=== PATIENT | female | born 1995 | race Hispanic/Latino ===

== ENCOUNTER 2019-11-28 23:32 | Observation (INO) | payer MEDICAID ==
[~2019-11-28] VITALS: Ht 157.5 cm; Wt 103.4 kg
[2019-11-29 00:32] LABS: APPEARANCE,URINE Clear (CLEAR); BILIRUBIN,URINE Negative (NEGATIVE); COLOR,URINE Yellow (YELLOW); GLUCOSE, URINE (UA) Negative (NEGATIVE); KETONES,URINE Negative (NEGATIVE); LEUKOCYTE ESTERASE ,URINE Small (NEGATIVE); NITRATE,URINE Negative (NEGATIVE); OCCULT BLOOD,URINE Negative (NEGATIVE); PH,URINE 7.5 (5.0-8.0); PROTEIN,URINE Negative (NEGATIVE)
[2019-11-29 01:04] LABS: BACTERIA,URINE Few /HPF (None Seen); RBC,URINE 0-1 /HPF (0-1)
[2019-11-29] MEDS ORDERED: LACTATED RINGERS 1000ML 1,000 ML IV PRN (01:20)
[2019-11-29 01:21] LABS: AMPHET/METH SCREEN,URINE NEGATIVE (NEGATIVE); BARBITURATE SCREEN, URINE NEGATIVE (NEGATIVE); BENZODIAZEPINES SCREEN,URINE NEGATIVE (NEGATIVE); CANNABINOID SCREEN,URINE NEGATIVE (NEGATIVE); COCAINE SCREEN,URINE NEGATIVE (NEGATIVE); OPIATE SCREEN,URINE NEGATIVE (NEGATIVE); PHENCYCLIDINE SCREEN,URINE NEGATIVE (NEGATIVE)
[2019-11-29] MEDS ORDERED: LACTATED RINGERS 1000ML 1,000 ML IV ONE (01:25)
[2019-11-29] MEDS ORDERED: LACTATED RINGERS 1000ML 1,000 ML IV SCH (01:30)
[2019-11-29 01:54] LABS: HEMATOCRIT 36.5 % (36-48); MEAN CORPUSCULAR HEMOGLOBIN 28.8 pg (27.0-33.0); MEAN CORPUSCULAR HGB CONC 33.4 g/dL (32.0-36.0); MEAN CORPUSCULAR VOLUME 86.3 fL (79-99); RED BLOOD CELL COUNT(AUTO) 4.23 MIL/uL (4.00-5.50); RED CELL DISTRIBUTION WIDTH 13.3 % (11.0-15.5); WHITE BLOOD COUNT (AUTO) 10.3 K/uL (4.8-10.8)
[2019-11-29] MEDS ORDERED: ACETAMINOPHEN 325 MG TAB ONE (03:15)
[2019-11-29 07:24] LABS: RAPID PLASMA REAGIN NONREACTIVE (NONREACTIVE)
[2019-12-02 05:13] LABS: HEPATITIS Bs ANTIGEN SCREEN P Negative (Negative)
== END 2019-11-29 09:30 | disposition home or self-care (01) ==
LOC: EDH 23:32 → LDH 23:33
DX: O60.03 Preterm labor without delivery, third trimester (principal); Z3A.38 38 weeks gestation of pregnancy
CPT/HCPCS: 36415; 80305; 81001; 85027; 86592; 86701; 86850; 86900; 86901; 87088; 87340; 87390; 96360; 96361; 99284; G0378 ×2; J7120 ×2

== ENCOUNTER 2019-12-18 17:52 | Observation (INO) | payer MEDICAID ==
[~2019-12-18] VITALS: Ht 160 cm; Wt 103.0 kg
[2019-12-18] MEDS ORDERED: NALOXONE HCL 0.4 MG/1 ML ML IV PRN (19:30)
[2019-12-18] MEDS ORDERED: LACTATED RINGERS 500 ML 500 ML IV PRN (19:30)
[2019-12-18] MEDS ORDERED: EPHEDRINE SULFATE 50 MG/ML AMPULE IVP PRN (19:30)
[2019-12-18] MEDS ORDERED: LACTATED RINGERS 1000ML 1,000 ML IV PRN (19:30)
[2019-12-18] MEDS ORDERED: MEPERIDINE-PF 50 MG/ML SYG IVP PRN (19:30)
[2019-12-18] MEDS ORDERED: PROMETHAZINE HCL 25 MG/ML 1ML AMPULE IM PRN (19:30)
[2019-12-18] MEDS ORDERED: DINOPROSTONE 10 MG VAGINAL SUPP VG SCH (19:30)
[2019-12-18] MEDS ORDERED: ROPIVACAINE 0.2% 100ML VIAL 100 ML EP SCH (19:30)
[2019-12-18 19:55] LABS: BILIRUBIN,URINE Negative (NEGATIVE); COLOR,URINE Yellow (YELLOW); GLUCOSE, URINE (UA) Negative (NEGATIVE); KETONES,URINE >=80 mg/dL (NEGATIVE); LEUKOCYTE ESTERASE ,URINE Small (NEGATIVE); NITRATE,URINE Negative (NEGATIVE); OCCULT BLOOD,URINE Negative (NEGATIVE); PH,URINE 5.5 (5.0-8.0); PROTEIN,URINE Negative (NEGATIVE)
[2019-12-18 19:59] VITALS: BP 117/66
[2019-12-18] MEDS ORDERED: OXYTOCIN-LR 20 UNITS/1000 ML 1,000 ML IV SCH (20:00)
[2019-12-18 20:13] LABS: APPEARANCE,URINE HAZY (CLEAR)
[2019-12-18 20:19] LABS: BACTERIA,URINE Few /HPF (None Seen); RBC,URINE None Seen /HPF (0-1)
[2019-12-18 20:39] LABS: HEMATOCRIT 38.2 % (36-48); MEAN CORPUSCULAR HEMOGLOBIN 27.4 pg (27.0-33.0); MEAN CORPUSCULAR HGB CONC 32.5 g/dL (32.0-36.0); MEAN CORPUSCULAR VOLUME 84.3 fL (79-99); RED BLOOD CELL COUNT(AUTO) 4.53 MIL/uL (4.00-5.50); RED CELL DISTRIBUTION WIDTH 14.2 % (11.0-15.5); WHITE BLOOD COUNT (AUTO) 11.1 K/uL (4.8-10.8)
[2019-12-18 22:17] LABS: AMPHET/METH SCREEN,URINE NEGATIVE (NEGATIVE); BARBITURATE SCREEN, URINE NEGATIVE (NEGATIVE); BENZODIAZEPINES SCREEN,URINE NEGATIVE (NEGATIVE); CANNABINOID SCREEN,URINE NEGATIVE (NEGATIVE); COCAINE SCREEN,URINE NEGATIVE (NEGATIVE); OPIATE SCREEN,URINE NEGATIVE (NEGATIVE); PHENCYCLIDINE SCREEN,URINE NEGATIVE (NEGATIVE)
[2019-12-19] MEDS ORDERED: OXYTOCIN-LR 20 UNITS/1000 ML 1,000 ML IV SCH (04:00)
== END 2019-12-18 23:45 | disposition home or self-care (01) ==
LOC: LDH 17:52 → INTOOBSV 17:52 → PREOBSVTOIN 12-20 17:49
DX: O21.2 Late vomiting of pregnancy (principal); R53.1 Weakness; R10.2 Pelvic and perineal pain; Z3A.39 39 weeks gestation of pregnancy
CPT/HCPCS: 36415; 80305; 81001; 85027; 86592; 86850; 86900; 86901; 87088; G0378 ×4

== ENCOUNTER 2019-12-24 05:54 | Inpatient (IN) | payer MEDICAID ==
[~2019-12-24] VITALS: Ht 157.5 cm; Wt 103.0 kg
[2019-12-24] MEDS ORDERED: CEFAZOLIN SODIUM 1 GM VIAL IVP PRN (06:00)
[2019-12-24] MEDS ORDERED: LACTATED RINGERS 1000ML 1,000 ML IV SCH (06:00)
[2019-12-24 06:45] LABS: HEMATOCRIT 38.5 % (36-48); MEAN CORPUSCULAR HEMOGLOBIN 27.6 pg (27.0-33.0); MEAN CORPUSCULAR HGB CONC 32.7 g/dL (32.0-36.0); MEAN CORPUSCULAR VOLUME 84.4 fL (79-99); RED BLOOD CELL COUNT(AUTO) 4.56 MIL/uL (4.00-5.50); RED CELL DISTRIBUTION WIDTH 14.1 % (11.0-15.5)
[2019-12-24 06:57] LABS: APPEARANCE,URINE SL CLOUDY (CLEAR); BILIRUBIN,URINE NEGATIVE (NEGATIVE); COLOR,URINE YELLOW (YELLOW); GLUCOSE, URINE (UA) NEGATIVE (NEGATIVE); KETONES,URINE NEGATIVE (NEGATIVE); LEUKOCYTE ESTERASE ,URINE NEGATIVE (NEGATIVE); NITRATE,URINE NEGATIVE (NEGATIVE); OCCULT BLOOD,URINE NEGATIVE (NEGATIVE); PH,URINE 6.5 (5.0-8.0); PROTEIN,URINE TRACE mg/dL (NEGATIVE); UROBILINOGEN,URINE 0.2 mg/dL (0.2-1.0)
[2019-12-24 06:59] LABS: AMPHET/METH SCREEN,URINE NEGATIVE (NEGATIVE); BARBITURATE SCREEN, URINE NEGATIVE (NEGATIVE); BENZODIAZEPINES SCREEN,URINE NEGATIVE (NEGATIVE); CANNABINOID SCREEN,URINE NEGATIVE (NEGATIVE); COCAINE SCREEN,URINE NEGATIVE (NEGATIVE); OPIATE SCREEN,URINE NEGATIVE (NEGATIVE); PHENCYCLIDINE SCREEN,URINE NEGATIVE (NEGATIVE)
[2019-12-24] MEDS ORDERED: CALDOLOR 800MG+NS 250ML 0 ML IV ONE (07:12)
[2019-12-24] MEDS ORDERED: OXYTOCIN 10 USP UNITS/ML ONE ×2 (07:13→13:15)
[2019-12-24 07:49] LABS: BACTERIA,URINE Moderate /HPF (None Seen)
[2019-12-24 07:51] LABS: SQUAMOUS EPITHELIAL CELL,UR Many /HPF (0-2)
[2019-12-24 07:52] LABS: MUCUS,URINE Few LPF (None Seen)
[2019-12-24] MEDS ORDERED: DURAMORPH PF1 MG/ML 10ML AMP IV ONE (13:15)
[2019-12-24] MEDS ORDERED: CEFAZOLIN SODIUM 1 GM VIAL IVP ONE (13:30)
[2019-12-24] MEDS ORDERED: EPHEDRINE SULFATE 50 MG/ML AMPULE ONE (13:31)
[2019-12-24] MEDS ORDERED: GLYCOPYRROLATE 1 MG/5 ML SYRINGE ONE (13:31)
[2019-12-24] MEDS ORDERED: PROMETHAZINE HCL 25 MG/ML 1ML AMPULE IM PRN (14:30)
[2019-12-24] MEDS ORDERED: SODIUM CHLORIDE 0.9% 10 ML VIAL IVP PRN (14:30)
[2019-12-24] MEDS ORDERED: OXYTOCIN-LR 20 UNITS/1000 ML 1,000 ML IV PRN (14:30)
[2019-12-24] MEDS ORDERED: MEPERIDINE-PF 75 MG/ML SYG IM PRN (14:30)
[2019-12-24 15:40] VITALS: BP 117/75
[2019-12-24] MEDS ORDERED: DiphenhydrAMINE HCL 50 MG/ML VIAL IVP PRN (16:00)
[2019-12-24] MEDS ORDERED: NALOXONE HCL 0.4 MG/1 ML ML IVP PRN ×3 (16:00)
[2019-12-24] MEDS ORDERED: ONDANSETRON HCL 4 MG/2 ML VIAL IVP PRN (16:00)
[2019-12-24] MEDS: DEXTROSE 5 %-0.45 % NACL 1,000 ML IV PRN (19:08)
[2019-12-24 19:25] VITALS: BP 111/66
[2019-12-24 23:24] VITALS: BP 116/67
[2019-12-25] MEDS: DEXTROSE 5 %-0.45 % NACL 1,000 ML IV PRN (02:10)
[2019-12-25 03:35] VITALS: BP 99/61
--- NOTE | 2019-12-25 06:43 | NUR ---
Patient sits up in bed tolerated it well. Ivory Catheter taken out informed to call for help if needed, she verbalizes understanding.
[2019-12-25 07:17] LABS: HEMATOCRIT 32.3 % (36-48); MEAN CORPUSCULAR HEMOGLOBIN 27.8 pg (27.0-33.0); MEAN CORPUSCULAR HGB CONC 32.8 g/dL (32.0-36.0); MEAN CORPUSCULAR VOLUME 84.8 fL (79-99); RED BLOOD CELL COUNT(AUTO) 3.81 MIL/uL (4.00-5.50); RED CELL DISTRIBUTION WIDTH 14.3 % (11.0-15.5); WHITE BLOOD COUNT (AUTO) 10.5 K/uL (4.8-10.8)
[2019-12-25 07:20] VITALS: BP 98/54
[2019-12-25] MEDS ORDERED: HYDROCODONE/ACETAMINOPHEN 5/325 MG TAB PO PRN (09:45)
[2019-12-25] MEDS ORDERED: BISACODYL 10 MG SUPP.RECT RC PRN (09:45)
[2019-12-25] MEDS ORDERED: IBUPROFEN 600 MG TABLET PO PRN (09:45)
[2019-12-25] MEDS ORDERED: ACETAMINOPHEN EXTRA STRENGTH 500 MG TABLET PO PRN (09:45)
[2019-12-25] MEDS ORDERED: ACETAMINOPHEN-CODEINE 300/30MG TAB PO PRN (09:45)
[2019-12-25] MEDS ORDERED: DIPH,PERTUSS(ACELL),TET VAC/PF 0.5 ML VIAL IM SCH (09:45)
[2019-12-25] MEDS ORDERED: LANOLIN 30GM OINTMENT TP PRN (09:45)
[2019-12-25] MEDS ORDERED: SIMETHICONE 80 MG TAB.CHEW PO PRN (09:45)
[2019-12-25 11:24] VITALS: BP 113/63
[2019-12-25 12:11] LABS: HEPATITIS Bs ANTIGEN SCREEN P Negative (Negative)
--- NOTE | 2019-12-25 13:20 | NUR ---
pt is discharged. verbal and written discharge instructions given. informed of the follow up appointment. prescription given. informed to call her doctor for concerns. pt voiced understanding to all things discussed. Pt is waiting to baby's discharge. Addendum: 12/25/19 at 1333 by JACLYN KERN RN Amended: Links added.
--- NOTE | 2019-12-25 14:25 | NUR ---
LATOYA met with pt. who is calm, cooperative and happy after baby's . Pt. reported this is first delivery and has named BG Finesse Grider. Pt. is single and resides with boyfriend Steve Grider and his parents whom she reports as a strong support system. Pt. is not employed outside the home and boyfriend is employed as a Machinist Apprentice in [place]. Pt. denied any history of mental illness or current signs of depression/anxiety. Pt. educated on PPD and instructed to contact physician of signs/symptoms of PPD; pt. verbalized an understanding. Pt. reported that she used marijuana 2yrs ago and denied any use since then. Pt. denied any use of etoh, tobacco or illicit substances. Benefits in place include Medicaid; WIC and [employer] to be reinstated after delivery. All utilities reportedly connected in the home, carseat in place. Family/boyfriend provide transportation. BG's paternal GM to assist post d/c. Pt. and to be discharged home when medically cleared. Addendum: 12/25/19 at 1743 by ALINE ROSE Amended: Links added.
[2019-12-25] MEDS ORDERED: IBUPROFEN 800 MG TAB PO SCH (14:30)
--- NOTE | 2019-12-25 14:50 | NUR ---
pt is dismissed with baby in stable condition, brought to private car via wheelchair by Bety liu Addendum: 12/25/19 at 1457 by JACLYN KERN RN Amended: Links added.
[2019-12-25] MEDS ORDERED: DOCUSATE SODIUM 100 MG CAP PO SCH (21:00)
== END 2019-12-25 14:50 | disposition home or self-care (01) | DRG 540 ==
LOC: LDH 05:54 → WSH 15:40
PROC: 10D00Z1 Extraction of Products of Conception, Low, Open Approach (ICD-10-PCS; principal; 2019-12-24 13:00)
PROC: 3E0234Z Introduction of Serum, Toxoid and Vaccine into Muscle, Percutaneous Approach (ICD-10-PCS; 2019-12-25)
DX: O99.214 Obesity complicating childbirth (principal); E66.9 Obesity, unspecified; Z3A.40 40 weeks gestation of pregnancy; Z37.0 Single live birth; Z23 Encounter for immunization
CPT/HCPCS: 36415; 59510; 80305; 81001; 85027; 86592; 86850; 86900; 86901; 87088; 87340; 90715; A4344; G0378; J0690; J1741; J2175; J2274; J2550; J2590; J3490; J7120